=== PATIENT | female | born 1955 | race Caucasian/White ===

== ENCOUNTER 2025-05-04 09:53 | Outpatient (CLI) | payer MEDICARE | END 2025-05-04 09:54 | disposition home or self-care (01) | LOC: CSHULT 09:53 | PROVIDERS: ATTEND Family Medicine | DX: K76.0 Fatty (change of) liver, not elsewhere classified (principal); Z90.49 Acquired absence of other specified parts of digestive tract | CPT/HCPCS: 76700 ==